=== PATIENT | male | born 1950 | race Caucasian/White ===

== ENCOUNTER 2020-02-23 11:00 | Day surgery (SDC) | payer MEDICARE ==
[~2020-02-23 11:00] MED LIST: Metoclopramide 10 MG/2 ML SDV IV PRN; Sodium Chloride 0.9% 1,000 ML IV SCH
[2020-02-23] MEDS ORDERED: Propofol 1,000 MG/100 ML SDV ONE (14:15)
[2020-02-23] MEDS ORDERED: Atropine 0.4 MG/ML SDV ONE (14:15)
[2020-02-23 15:50] VITALS: BP 124/68; PULSE 60
--- NOTE | 2020-02-23 20:20 | OR ---
DATE OF OPERATION: 02/23/2020 SURGEON: David Foote MD PREOPERATIVE DIAGNOSIS: Family history of colon cancer and personal history of polyps. POSTOPERATIVE DIAGNOSIS: Family history of colon cancer and personal history of polyps. PROCEDURE: Colonoscopy. ANESTHESIA: MAC. ESTIMATED BLOOD LOSS: None. COMPLICATIONS: None. INDICATION FOR THE PROCEDURE: The patient is a 70-year-old male with a previous history of a personal history of polyps. Father also had colon cancer. The patient is here today for surveillance colonoscopy. Last scope was 5 years ago. Denies any change in bowel habits since that time. DESCRIPTION OF PROCEDURE: Informed consent was obtained from the patient. The patient was taken to operating room and placed on table in left lateral decubitus position. Monitored anesthesia care was administered. Digital rectal exam performed and it was normal. Colonoscope then advanced through the anus directed toward the cecum. Cecum was reached and identified by appendiceal orifice and ileocecal valve. Colonoscope then slowly withdrawn. He did have some small diverticula throughout the colon, worse in the sigmoid and descending colon. However, otherwise colon was unremarkable. Rectum was also otherwise unremarkable. Colonoscope then withdrawn. FINDINGS: Sigmoid and descending diverticulosis. We would recommend continued high-fiber diet and plenty of water. RECOMMENDATIONS: We would recommend repeat surveillance colonoscopy in 5 years. TYSHAWN/ANUJ /[id number]
== END 2020-02-23 15:30 | disposition home or self-care (01) ==
LOC: LB.SDS 11:00
PROVIDERS: ATTEND Surgery
DX: Z12.11 Encounter for screening for malignant neoplasm of colon (principal); K57.30 Diverticulosis of large intestine without perforation or abscess without bleeding; I10 Essential (primary) hypertension; L98.9 Disorder of the skin and subcutaneous tissue, unspecified; Z91.030 Bee allergy status; Z86.010 Personal history of colon polyps; Z80.0 Family history of malignant neoplasm of digestive organs; Z79.82 Long term (current) use of aspirin; Z79.899 Other long term (current) drug therapy
CPT/HCPCS: J0461; J2704; J7030